=== PATIENT | male | born 1970 | race African-American/Black ===

== ENCOUNTER 2025-01-03 08:45 | Outpatient (RCR) | payer MEDICARE, MEDICAID, SELFPAY ==
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
--- NOTE | 2024-12-16 10:49 | OPREHPOC ---
Outpatient Therapy Plan of Care This is a Multidisciplinary Plan of Care that may contain components documented by all disciplines (PT, OT, and ST.) OT Problem 1 OT Problem #1 Knowledge Deficit OT Goal 1 Goal / Goal Update 1. Pt to be independent with instructed materials. Target Visit 8 OT Problem 2 OT Problem #2 Pain OT Goal 1 Goal / Goal Update 1. Patient to report reduced pain in the (L) hand to 5/10 or less at rest. 2. Patient to report reduced pain in the (L) hand to 7/10 or less with ADLs. Target Visit 8 OT Problem 3 OT Problem #3 Impaired Flexibility OT Goal 1 Goal / Goal Update Patient to increase functional flexibility of the (L) hand for hygiene, nail care, and for pain management as measured by: 1. Pt to increase active extension of the PIP joints of digits II-V by 20 degrees (-75 index, - 80 middle, -50 ring, -50 small) 2. Pt to be able to make a hook fist with the (L) hand actively, touching finger tips to the base of the fingers. Target Visit 8
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
== END 2025-01-06 11:28 | disposition home or self-care (01) ==
LOC: ANHOT 08:45
PROVIDERS: PCP Internal Medicine; Visit Provider Internal Medicine
DX: M24.549 Contracture, unspecified hand (principal)
CPT/HCPCS: 97110; 97166